=== PATIENT | male | born 2000 | race Caucasian/White ===

== ENCOUNTER 2020-09-04 01:35 | Emergency (ER) | payer SELFPAY ==
[~2020-09-04] VITALS: Ht 170.1 cm; Wt 56.7 kg
[~2020-09-04 01:35] MED LIST: AMOXIL250 MG/5 M PO; Zofran4 MG PO
[2020-09-04] MEDS ORDERED: ZOFRAN4 MG PO (04:51)
== END 2020-09-04 05:22 | disposition home or self-care (01) ==
LOC: ED 01:35
DX: S02.2XXA Fracture of nasal bones, initial encounter for closed fracture (principal); S06.0X9A Concussion with loss of consciousness of unspecified duration, initial encounter; S02.401A Maxillary fracture, unspecified side, initial encounter for closed fracture; Z79.899 Other long term (current) drug therapy; Y09 Assault by unspecified means; Y93.89 Activity, other specified; Y92.89 Other specified places as the place of occurrence of the external cause; Y99.8 Other external cause status